=== PATIENT | male | born 1985 | race Caucasian/White ===

== ENCOUNTER 2024-06-19 08:23 | Day surgery (SDC) | payer BC ==
--- NOTE | 2024-06-18 13:11 | NUR ---
PHONE CALL TO PT AT [phone]. NO ANSWER UNABLE TO LEAVE A MESSAGE DUE TO MAIL BOX IS FULL.
[~2024-06-19] VITALS: Ht 175.3 cm; Wt 85.9 kg
[~2024-06-19 08:23] MED LIST: BUPIVACAINE HCL 0.25% 50 ML MDV ONE; CEFAZOLIN SODIUM 2 GM/20 ML SYR IV SCH; HEParin SOD (PORCINE) 5,000 UNIT/0.5 ML SYR SUB-Q SCH; IBLOOD GLUCOSE TEST STRIP 1 EA TEST VI PRN; LACTATED RINGER'S 1,000 ML IV SCH; LIDOCAINE HCL 1% 5 ML SDV INJ ONE
[2024-06-19 08:41] VITALS: BP 128/75
[2024-06-19] MEDS ORDERED: ATIVAN2 MG PO (08:47)
[2024-06-19] MEDS ORDERED: fentaNYL citrate 100 MCG/2 ML VIAL ONE (09:13)
[2024-06-19] MEDS ORDERED: propofoL 200 MG/20 ML VIAL ONE (09:14)
[2024-06-19] MEDS ORDERED: ACETAMINOPHEN 1,000 MG/100 ML VIAL ONE (09:14)
[2024-06-19] MEDS ORDERED: LIDOCAINE HCL 2% 5 ML SDV ONE (09:14)
[2024-06-19] MEDS ORDERED: DEXAMETHASONE SOD PHOS 4 MG/ML VIAL ONE (09:14)
[2024-06-19] MEDS ORDERED: ondansetron HCL 4 MG/2 ML VIAL ONE (09:14)
[2024-06-19] MEDS ORDERED: ROCURONIUM BROMIDE 50 MG/5 ML SYR ONE ×2 (09:14→10:31)
[2024-06-19] MEDS ORDERED: SUCCINYLCHOLINE IN 0.9% NACL 200 MG/10 ML SYRINGE ONE (09:21)
[2024-06-19] MEDS ORDERED: SUGAMMADEX SODIUM 200 MG/2 ML ML ONE (10:51)
[2024-06-19] MEDS ORDERED: IBLOOD GLUCOSE TEST STRIP 1 EA TEST VI PRN (11:30)
[2024-06-19] MEDS ORDERED: KETOROLAC TROMETHAMINE 30 MG/ML VIAL IV PRN (11:30)
[2024-06-19] MEDS ORDERED: ondansetron HCL 4 MG/2 ML VIAL IV PRN (11:30)
[2024-06-19] MEDS ORDERED: fentaNYL citrate 50 MCG/ML SDV IV PRN (11:30)
[2024-06-19] MEDS ORDERED: NALOXONE HCL 0.4 MG SYR IV PRN ×2 (11:30→11:45)
[2024-06-19] MEDS ORDERED: IBUPROFEN600 MG PO (11:38)
[2024-06-19] MEDS ORDERED: OXYCODON-ACETA1 EAC2 PO (11:39)
[2024-06-19] MEDS ORDERED: ACETAMINOPHEN500 MG PO (11:39)
[2024-06-19] MEDS ORDERED: LACTATED RINGER'S 1,000 ML IV SCH (11:45)
[2024-06-19] MEDS ORDERED: ACETAMINOPHEN 500 MG TAB PO PRN (11:45)
[2024-06-19] MEDS ORDERED: OXYCODONE/APAP 7.5/325 TAB PO PRN (11:45)
[2024-06-19] MEDS ORDERED: IBUPROFEN 600 MG TAB PO PRN (11:45)
--- NOTE | 2024-06-19 11:49 | NUR ---
06/19/24 Evelin9 Jenna Bautista 1105- PT PRESENTS TO PACU, SEMI BARTHOLOMEW POSITION. O2 AT 6L PER MASK, PT O2 SATS 70% WHEN PLACED ON MONITOR. JAW THRUST PERFORMED, PT EXCHANGING AIR, O2 TURNED UP TO 10L AT THIS TIME TO IMPROVE O2 SATS. JAW THRUST CONTINUED, O2 SATS INCREASING TO 100%. LR INFUSING TO LH IV. DRESSING TO RIGHT GROIN, CDI. ABD SOFT, NON DISTENDED. PT NON REACTIVE TO ALL STIMULUS AT THIS TIME. ALL MONITORS IN PLACE, WILL CONTINUE TO MONITOR. 1112- PT MAINTAINING AIRWAY WITH OPA AND HEAD POSITIONING. O2 AT 10L. BREATHING EVEN AND NON LABORED. PT REMAINS NON REACTIVE TO STIMULUS. 1122- PT REACTIVE TO CONTINOUS TACTILE STIMULUS, KEEPS EYES CLOSED AND TURNS HEAD. PT FALLS BACK TO SLEEP. OPA REMAINS IN PLACE, O2 TURNED DOWN TO 6L, O2 SATS 100%. 1125- PT WAKES TO VERBAL AND TACTILE STIMULUS. OPENS EYES SLIGHTLY, OPA REMOVED AND PT MOVED TO ROOM AIR. PT REORIENTED TO TIME AND PLACE. DENIES PAIN AND NAUSEA. PT VERY DROWSY AND RESTS INTERMITTENTLY. PT SNORES OFF AND ON, O2 SATS REMAINS LOW 90'S. 1143- DR CASTORENA AT BEDSIDE, PT WAKES EASILY TO VERBAL STIMULI. PROCEDURE DISCUSSED WITH PT, PT ASKS QUESTIONS. 1145- PT SITTING UP IN BED, SIPPING ON 7-UP. EYES CLOSED INTERMITTENTLY, PT STATES "I'M NOT ASLEEP, I'M JUST TAKING A NAP". PT DENIES NAUSEA. TOLERATING ORAL FLUIDS. PT REPORTS PAIN 3/10, WOULD LIKE NON NARCOTIC PAIN MEDICATION.
[2024-06-19 12:06] VITALS: BP 114/75
--- NOTE | 2024-06-19 12:10 | NUR ---
PATIENT RETURNS TO ROOM 6 FROM PACU VIA BED. PATIENT IS AWAKE AND TALKING BUT DROWSY. VITAL SIGNS TAKEN AND WDL. PATIENT HAS BEEN DRINKING WITHOUT DIFFICULTY AND DENIES NAUSEA. HE REPORTS A PAIN LEVEL OF 3/10 AND IS REQUESTING PAIN MEDICATION BECAUSE HE DOES NOT WANT THE PAIN TO GET WORSE. I EXPLAINED THE EXPECTATIONS FOR DICHARGE AND HE WOULD LIKE TO ATTEMPT TO URINATE NOW. WE WILL WAIT FOR HIM TO WAKE UP A LITTLE MORE TO AMBULATE HIM. DRESSING TO RIGHT GROIN IS INTACT WITHOUT EXCESSIVE BLEEDING. BED IS IN LOWEST POSITION AND CALL LIGHT IS WITHIN REACH. DENIES ANY OTHER NEEDS AT THIS TIME. I WILL LET HIM CONTINUE TO REST.
[2024-06-19 13:03] VITALS: BP 108/72
--- NOTE | 2024-06-19 13:05 | NUR ---
HOULY ROUNDING ON PATIENT. HE IS STILL DROWSY BUT WAKING UP A LITTLE MORE. HE REPORTS HIS PAIN A 2/10. DENIES NAUSEA/VOMITING. HE WOULD LIKE TO STAND UP AND TRY TO WALK. HE DENIES ANY NEEDS AT THIS TIME.
--- NOTE | 2024-06-19 13:35 | NUR ---
PATIENT MEETS ALL DISCHARGE CRITERIA AT THIS TIME. PATIENT HAS VOIDED, EATEN, DRANK, AMBULATED, AND DENIES ANY NAUSEA/VOMITING AND EXPRESSED THE DESIRE TO GO HOME. DISCHARGE INSTRUCTIONS WERE REVIEWED IN DETAIL AND ANSWERED ALL QUESTIONS THAT PATIENT AND HAD. IV WAS REMOVED FROM LEFT HAND. PATIENT WAS DISCHARGED VIA WHEELCHAIR WITH HIS HIS RIDE HOME.
--- NOTE | 2024-06-20 09:55 | OR ---
[facility] [address], [place] [address] Signed DATE OF OPERATION: 06/19/2024 SURGEON: Giselle Castorena MD PREOPERATIVE DIAGNOSIS: Right inguinal hernia. POSTOPERATIVE DIAGNOSES: 1. Right direct inguinal hernia with two defects. 2. Cord lipoma. PROCEDURES: Repair of right inguinal hernia with implantation of Prolene mesh underlay technique and excision of cord lipoma. ANESTHESIA: General endotracheal; Barron Campbell, RETAIL DEPARTMENT SUPERVISOR and local 10 mL of 0.25% Marcaine with epinephrine. INDICATION: This 39-year-old white man is a patient of SHANA Vallejo. He has had increasing symptoms of a right inguinal hernia which was reducible, but increasing in size. Clinical examination shows reducible bulky right inguinal hernia. Testicles are normal. He is admitted at this time to undergo repair of the hernia. He understands the risk of bleeding, infection, recurrence. FINDINGS: Two distinct defects were noted in the floor of the canal consistent with direct hernia. Repair included division of the fascia transversalis with implantation of Prolene mesh in an underlay technique. Additionally, he had a bulky cord lipoma which was also excised. An ilioinguinal nerve branch was identified and well preserved. PROCEDURE IN DETAIL: The patient was brought to the operating room, given a general endotracheal anesthetic. Preoperative antibiotic Ancef was given. Sequential compression device stockings used and heparin subcutaneously administered. The abdomen was prepared with a chlorhexidine solution after clipping. In the right lower abdomen two fingerbreadths above the right pubic tubercle a small incision was made along the line of skin tension. Dissection was carried through the subcutaneous tissue with electrocautery. The external oblique was incised along its fibers revealing the underlying cord. A good-sized ilioinguinal nerve Electronically Signed By: GISELLE CASTORENA MD 06/20/24 0955 PATIENT NAME: JAVIER MATTHEWS OPERATIVE REPORT DATE OF : [birth year] REPORT #: [id number] PHYSICIAN: GISELLE CASTORENA MD PCP: ELIANE GONZALEZ PA-C REPORT IS CONFIDENTIAL AND NOT TO BE RELEASED WITHOUT AUTHORIZATION [facility] [address], [place] [address] Signed was identified and dissected free from the cord structures with sharp dissection. The nerve was reflected around the external oblique to keep it protected. With a blunt electrocautery dissection, the cord was freed from the canal, identifying a bulky defect in the floor as well as a smaller defect closer to the pubic tubercle. The cord was encircled with a Bowen drain for retraction. The attenuated fibers of the fascia of the transversalis were incised with electrocautery. An Allis clamp was applied to the tendon of the transversus abdominis. Blunt dissection of the properitoneal fat allowed for implantation of Prolene mesh in an underlay technique with interrupted 2-0 Prolene sutures. A defect was cut in the graft to accommodate the cord structures and tails of the graft were secured laterally with all due care. Cord and ilioinguinal nerve were replaced in the inguinal canal and external oblique reapproximated with running 2-0 Vicryl suture. 10 mL of 0.25% Marcaine with epinephrine had been injected in the area for postoperative analgesic benefit. Felton's layer was reapproximated with interrupted 2-0 Vicryl and skin closed with running subcuticular 3-0 Vicryl. Steri-Strips were applied as was an Acticoat dressing. The patient tolerated the procedure well. Blood loss was minimal. Complications none. MD BRIAN Manzano/AILYNL /[id number] cc: Eliane Gonzalez PA-C Copies: ELIANE GONZALEZ PA-C ~ Electronically Signed By: GISELLE ACSTORENA MD 06/20/24 0955 PATIENT NAME: JAVIER MATTHEWS OPERATIVE REPORT DATE OF : [birth year] REPORT #: [id number] PHYSICIAN: GISELLE CASTORENA MD PCP: ELIANE GONZALEZ PA-C REPORT IS CONFIDENTIAL AND NOT TO BE RELEASED WITHOUT AUTHORIZATION
--- NOTE | 2024-06-25 17:42 | PATH ---
[facility] [address] [facility] [place] [address] Signed SPECIMEN(S): A SPERMATIC CORD LIPOMA SPECIMEN SOURCE: A. SPERMATIC CORD LIPOMA CLINICAL HISTORY: Right inguinal hernia FINAL PATHOLOGIC DIAGNOSIS: Spermatic cord lipoma: - [place] lobulated adipose tissue consistent with lipoma. JVR:clv MICROSCOPIC EXAMINATION: Histologic sections of all submitted blocks are examined by light microscopy. These findings, together with the gross examination, support the pathologic diagnosis. Immunostains were performed with appropriate controls on block A2 and show the following: - CD68: Positive in scattered histiocytes. - MDM2: Negative in cells of concern. JVR:clv GROSS DESCRIPTION: The specimen, labeled and designated "Audra Matthews, spermatic cord lipoma," is received in formalin and consists of single fragment yellow soft tissue surrounded by a thin pink-zamudio membrane measuring 8.5 x 2.5 x 1.4 cm. The specimen entirely inked blue and is sectioned to reveal homogenous yellow cut surfaces. Sofa Inspector sections submitted in cassettes A1 and A2. JM (under the direct supervision of a pathologist) The Gross Description was prepared using a voice recognition system. The report was reviewed for accuracy; however, sound-alike word errors, addition and/or deletions may occur. If there is any question about this report, please contact Client Services. PERFORMING LABORATORY: Technical component was performed by [facility], [address] [place] [id number] (CLIA# [id number]). Professional interpretation was performed by [facility], [address] [place] [address], [place] [address] (CLIA#: [id number]). PATIENT NAME: JAVIER MATTHEWS PATHOLOGY DATE OF : [birth year] REPORT #: [id number] PHYSICIAN: MICHAEL PATHOLOGY PCP: CB YANEZ PA-C REPORT IS CONFIDENTIAL AND NOT TO BE RELEASED WITHOUT AUTHORIZATION [address] [place], [place] [address] Signed Diagnostician: Sourav Obrien MD Pathologist Electronically Signed 06/25/2024 Copies: ~ PATIENT NAME: JAVIER MATTHEWS PATHOLOGY DATE OF : [birth year] REPORT #: [id number] PHYSICIAN: MICHAEL PATHOLOGY PCP: CB YANEZ PA-C REPORT IS CONFIDENTIAL AND NOT TO BE RELEASED WITHOUT AUTHORIZATION
== END 2024-06-19 13:35 | disposition home or self-care (01) ==
LOC: DS 08:23
PROVIDERS: ATTEND Surgery
PROC: 0YU50JZ Supplement Right Inguinal Region with Synthetic Substitute, Open Approach (ICD-10-PCS; principal; 2024-06-19 09:30)
DX: K40.90 Unilateral inguinal hernia, without obstruction or gangrene, not specified as recurrent (principal); D17.6 Benign lipomatous neoplasm of spermatic cord
CPT/HCPCS: 00830; C1781; J0131; J0330; J0690; J1100; J1644; J1885; J2001; J2405; J2704; J3010; J3490; J7121

== ENCOUNTER 2025-07-13 05:49 | Day surgery (SDC) | payer BC ==
[~2025-07-13] VITALS: Ht 172.7 cm; Wt 82.0 kg
[~2025-07-13 05:49] MED LIST changes: +ACETAMINOPHEN500 MG PO; +ADDERALL 5 MG TA5 MG PO; +ADDERALL XR 1515 MG PO; +ATIVAN2 MG PO; -BUPIVACAINE HCL 0.25% 50 ML MDV ONE; -CEFAZOLIN SODIUM 2 GM/20 ML SYR IV SCH; +DESVENLAFAXINE25 MG PO; -HEParin SOD (PORCINE) 5,000 UNIT/0.5 ML SYR SUB-Q SCH; -IBLOOD GLUCOSE TEST STRIP 1 EA TEST VI PRN; +IBUPROFEN600 MG PO; -LIDOCAINE HCL 1% 5 ML SDV INJ ONE; +OXYCODON-ACETA1 EAC2 PO; +VITAMIN D3250 MCG PO
[2025-07-13 06:05] VITALS: BP 128/69
[2025-07-13] MEDS ORDERED: HEParin SOD (PORCINE) 5,000 UNIT/ML SDV SUB-Q SCH (07:00)
[2025-07-13] MEDS ORDERED: IBLOOD GLUCOSE TEST STRIP 1 EA TEST VI PRN ×2 (07:00→09:15)
[2025-07-13] MEDS ORDERED: CEFAZOLIN SODIUM 2 GM in SODIUM CHLORIDE 0.9% 100 ML IV SCH (07:00)
[2025-07-13] MEDS ORDERED: LIDOCAINE HCL 1% 5 ML SDV INJ ONE (07:00)
[2025-07-13] MEDS ORDERED: MIDAZOLAM HCL 2 MG/2 ML VIAL ONE (07:24)
[2025-07-13] MEDS ORDERED: fentaNYL citrate 100 MCG/2 ML VIAL ONE (07:24)
[2025-07-13] MEDS ORDERED: DEXAMETHASONE SOD PHOS 4 MG/ML VIAL ONE (07:25)
[2025-07-13] MEDS ORDERED: Ropivacaine HCl 0.5% 30 ML VIAL ONE (07:25)
[2025-07-13] MEDS ORDERED: LIDOCAINE HCL 2% 5 ML SDV ONE (07:27)
[2025-07-13] MEDS ORDERED: ACETAMINOPHEN 1,000 MG/100 ML VIAL ONE (08:03)
[2025-07-13] MEDS ORDERED: KETOROLAC TROMETHAMINE 30 MG/ML VIAL ONE (08:13)
[2025-07-13] MEDS ORDERED: fentaNYL citrate 50 MCG/ML SDV IV PRN (09:15)
[2025-07-13] MEDS ORDERED: NALOXONE HCL 0.4 MG SYR IV PRN ×2 (09:15→10:45)
[2025-07-13] MEDS ORDERED: HYDROmorphone HCL 1 MG/ML SYR IV PRN (09:15)
--- NOTE | 2025-07-13 09:49 | NUR ---
07/13/25 0949 Hayde Ramos 0945-PATIENT ARRIVED TO PACU DROWSY EYES CLOSED. RA RR EVEN 97% DRESSING TO LEFT GROIN INTACT. IVF INFUSING. SR HR 70'S. PATIENT TALKING WITH EYES CLOSED. 0948-PATIENT SLEEPING SNORING RA 96% RR EVEN
[2025-07-13 10:25] VITALS: BP 129/75
--- NOTE | 2025-07-13 10:25 | NUR ---
PT ARRIVED BACK TO DS ON RA, AAOX3, ANSWERING QUESTIONS APPROPRIATELY, AND ABLE TO MAKE NEEDS KNOWN. REPORT RECEIVED FROM TIE PULLER. SURGICAL SITE VISUAILZED WITH TIE PULLER AND NOTED SMALL AMT OF SHADOWING AT MEDIAL EDGE. DRSG REMAINS INTACT. VS TAKEN. IV SITE ASSESSED. PT DENIES PAIN OR NAUSEA WHEN ASKED. PT DRINKING ICE WATER UPON RETURN AND REPORT RECEIVED PT VOIDED AT APPROX 0950 WITH NOTED AMT OF APPROX 700ML URINE OUT. PT PROVIDED WITH JELLO. BED IN LOW POSITION, WHEELS LOCKED, BILAT RAILS IN PLACE, CALL LIGHT AND PERSONAL BELONGINGS WITHIN PT REACH. ALL QUESTIONS ANSWERED.
[2025-07-13] MEDS ORDERED: ACETAMINOPHEN500 MG PO ×2 (10:35→10:36)
[2025-07-13] MEDS ORDERED: IBUPROFEN600 MG PO ×2 (10:35→10:36)
[2025-07-13] MEDS ORDERED: HYDROMORPHONE HC4 MG PO (10:36)
[2025-07-13] MEDS ORDERED: ACETAMINOPHEN 500 MG TAB PO PRN (10:45)
[2025-07-13] MEDS ORDERED: LACTATED RINGER'S 1,000 ML IV SCH (10:45)
[2025-07-13] MEDS ORDERED: IBUPROFEN 600 MG TAB PO PRN (10:45)
[2025-07-13] MEDS ORDERED: SEVOFLURANE 250 ML BTL INH ONE (11:19)
[2025-07-13 11:55] VITALS: BP 115/73
--- NOTE | 2025-07-13 11:55 | NUR ---
INTO PTS ROOM FOR ROUTINE REASSESSMENT. VS TAKEN. IV SITE ASSESSED. SURGICAL SITE VISUALIZED AND NO ACUTE CHANGES NOTED FROM PREVIOUS ASSESSMENT. PT CONT TO DENY PAIN OR NAUSEA WHEN ASKED. PT HAS TOLERATED PO FOOD AND FLUIDS W/O ISSUES NOTED OR REPORTED. ALL QUESTIONS ANSWERED. BED IN LOW POSITION, WHEELS LOCKED, BILAT RAILS IN PLACE, CALL LIGHT AND PERSONAL BELONGINGS WITH PT REACH.
--- NOTE | 2025-07-13 12:25 | NUR ---
1215-INTO PTS ROOM FOR DISCHARGE EDUCATION. PT PROVIDED WITH VERBAL AND WRITTEN DISCHARGE INSTRUCTIONS. ALL QUESTIONS ANSWERED AND PT VERBALIZES UNDERSTANDING. PT PROVIDED WITH POST OP APPT FOR 08/10/25 AT 1620. 1225-IV REMOVED AND PT DRESSING FOR DISCHARGE. PT DECLINES RN ASSISTANCE WITH DRESSING.
--- NOTE | 2025-07-13 12:35 | NUR ---
PT DISCHARGED FROM DS VIA WC TO PASSENGER SIDE OF HIS FATHERS VEHICLE. ALL PERSONAL BELONGINGS TAKEN WITH PT INCLUDING RX HARDCOPY.
--- NOTE | 2025-07-16 18:26 | OR ---
[facility] [address], [place] [address] Signed DATE OF OPERATION: 07/13/2025 SURGEON: Giselle Castorena MD PREOPERATIVE DIAGNOSIS: Left inguinal hernia. POSTOPERATIVE DIAGNOSIS: Left inguinal hernia with colonic sliding component. PROCEDURE: Repair of left inguinal hernia (sliding type) with excision of hernia sac and implantation of Prolene mesh, (underlay technique). ANESTHESIA: General LMA, Barron Campbell, PC SUPPORT SPECIALIST and local 10 mL of 0.25% Marcaine with epinephrine. INDICATION: This 40-year-old white man is known to me from the past and had undergone right inguinal hernia repair about a year ago. [facility] He has noticed a bulge in the left groin at this time, though clinically did not have such a hernia on previous examination. A reducible inguinal hernia is noted. He is admitted at this time to undergo repair of the hernia. He understands the risk of bleeding, infection, recurrence and so on. FINDINGS: Indeed, there was an indirect sac, moderate in size with a colonic sliding component. Complete reduction of the colon and invagination of the sac was undertaken as well as implantation of Prolene mesh in an underlay technique. The left ilioinguinal nerve was identified and preserved. There were no complications. The patient did have some amount of bruising in the region of the inguinal area related to a preoperative ilioinguinal nerve block provided by Anesthesia, but there was no active bleeding at conclusion of the procedure. DESCRIPTION OF PROCEDURE: The patient was brought to the operating room after undergoing a preoperative ilioinguinal nerve block under ultrasound control. He was given a general LMA type anesthetic. Preoperative antibiotic Ancef was given. Sequential compression device stockings were used. The lower abdomen was clipped and prepared with chlorhexidine Electronically Signed By: GISELLE CASTORENA MD 07/16/25 1826 PATIENT NAME: JAVIER MATTHEWS OPERATIVE REPORT DATE OF : [birth year] REPORT #: [id number] PHYSICIAN: GISELLE CASTORENA MD PCP: ELIANE GONZALEZ PA-C REPORT IS CONFIDENTIAL AND NOT TO BE RELEASED WITHOUT AUTHORIZATION [facility] [address], [place] [address] Signed solution and draped sterilely. An incision was made cephalad to the pubic tubercle along the line of skin tension. Dissection was carried through the subcutaneous tissue with electrocautery. The external oblique was incised along its fibers revealing underlying bruising and a small amount of blood from his preoperative ilioinguinal block. The external oblique was freed from the surrounding soft tissue and electrocautery was used to secure any weeping of bleeding from the nerve block itself. The cord was freed from the canal and encircled with a Maegan drain. An ilioinguinal nerve branch in the cremasteric muscle fibers dissected free sharply and reflected around the external oblique. Examination of floor showed it to be markedly attenuated, consistent with possible direct herniation. There was obviously an indirect hernia component as well. The cremasteric muscle fibers were divided circumferentially with electrocautery laterally and for dissection of a hernia sac moderate in size to be dissected free from the cord structures itself. The hernia sac was freed to its exit point from the intraabdominal cavity. The hernia sac was incised and opened and within it at the base was the sigmoid colon, which was fused to the posteromedial wall. The hernia sac was freed a bit more and further dissection of the sigmoid colon was undertaken freeing it from the hernia sac proper allowing it to return to the peritoneal cavity. The neck of the sac was secured with a 2-0 silk suture and redundant hernia sac amputated and passed for pathology. Examination of floor showed to be rather attenuated. An Allis clamp was applied to the tendon of the transversus abdominis and the attenuated fibers of the fascia of the transversalis were incised with electrocautery. Using blunt dissection, the properitoneal fat was . The iliohypogastric venous blood vessel was secured with silk ties for good hemostasis. A segment of Prolene mesh was cut to an elliptical configuration and secured in an underlay technique with interrupted 2-0 Prolene sutures. A defect was cut in the graft to accommodate the cord and the tails of the graft were secured laterally with all due care. Special care was taken to avoid incorporation of the ilioinguinal nerve. Irrigation was undertaken. There was no sign of bleeding or other problem. Bruising from the nerve block was not advancing and closure was deemed appropriate. The ilioinguinal nerve was replaced into the canal as was the cord and 10 mL of 0.25% Marcaine with epinephrine was injected locally. The external oblique was reapproximated with running 2-0 Vicryl suture. Felton layer was reapproximated with interrupted 3-0 Vicryl and the skin closed with running subcuticular 3-0 Vicryl. Steri-Strips were applied as was an Acticoat dressing. He was ultimately extubated and transferred to the recovery room in good condition having suffered no complications. Sponge, needle, and instrument counts reported as correct x3. Electronically Signed By: GISELLE CASTORENA MD 07/16/25 1826 PATIENT NAME: JAVIER MATTHEWS OPERATIVE REPORT DATE OF : [birth year] REPORT #: [id number] PHYSICIAN: GISELLE CASTORENA MD PCP: ELIANE GONZALEZ PA-C REPORT IS CONFIDENTIAL AND NOT TO BE RELEASED WITHOUT AUTHORIZATION [address] [place] [address] Signed MD BRIAN Manzano/DANNIE /[id number] cc: Eliane Gonzalez PA-C Copies: ELIANE GONZALEZ PA-C ~ Electronically Signed By: GISELLE CASTORENA MD 07/16/25 1826 PATIENT NAME: JAVIER MATTHEWS OPERATIVE REPORT DATE OF : [birth year] REPORT #: [id number] PHYSICIAN: GIESLLE CASTORENA MD PCP: ELIANE GONZALEZ PA-C REPORT IS CONFIDENTIAL AND NOT TO BE RELEASED WITHOUT AUTHORIZATION
== END 2025-07-13 12:35 | disposition home or self-care (01) ==
LOC: DS 05:49
PROVIDERS: ATTEND Surgery
PROC: 3E0T3BZ Introduction of Anesthetic Agent into Peripheral Nerves and Plexi, Percutaneous Approach (ICD-10-PCS; 2025-07-13)
PROC: 0YU60JZ Supplement Left Inguinal Region with Synthetic Substitute, Open Approach (ICD-10-PCS; principal; 2025-07-13 07:30)
DX: K40.90 Unilateral inguinal hernia, without obstruction or gangrene, not specified as recurrent (principal)
CPT/HCPCS: 00830; 64425; 76942; C1781; J0131; J0688; J1100; J1644; J1885; J2003; J2250; J2405; J2704; J2795; J3010; J7121